=== PATIENT | female | born 2000 | race Caucasian/White ===

== ENCOUNTER 2018-06-12 19:11 | Emergency (ER) | payer BC ==
[2018-06-12 19:52] VITALS: BP 114/71
--- NOTE | 2018-06-12 20:26 | UC ---
Eye Complaint HPI - HPI Summary HPI Summary: 17 y/o female presents to the urgent care c/o RT eye upper lid pain, redness and mild swelling since this morning. Pt reports She woke up w/ a clear- yellowish discharge, but it is painful to touch and now her RT eye conjunctiva is red. Pt removed contact lenses. Pt denies visual disturbances, photophobia, MULLER, SOB, chest pain, abdominal pain, N/V/D. - History of Current Complaint Chief Complaint: UCEye Stated Complaint: RIGHT EYE Time Seen by Provider: 06/12/18 20:25 Hx Obtained From: Patient Hx Last Menstrual Period: 05/13/18 ?: No Onset/Duration: Gradual Onset, Lasting Hours - 12 hrs, Still Present Timing: Constant Severity Initially: Mild Severity Currently: Mild Pain Intensity: 4 - at touch Pain Scale Used: 0-10 Numeric Location of Injury: Conjunctiva - Rt eye redness, Eye Lid (upper) - RT eye lid pain and redness Character: Dull Aggravating Factor(s): Blinking Associated Signs And Symptoms: Positive: Negative, Drainage (Clear), Swelling - mild. Negative: Photophobia, Fever - Risk Factors Penetrating Injury Risk Factor: Negative Globe Rupture Risk Factors: Negative Acute Glaucoma Risk Factors: Negative Optic Artery Occlusion Risk Factors: Negative - Allergies/Home Medications Allergies/Adverse Reactions: Allergies Allergy/AdvReac Type Severity Reaction Status Date / Time No Known Allergies Allergy Verified 06/12/18 19:48 Home Medications: Home Medications Oral Contraceptive 1 tab PO DAILY 06/12/18 [History] PMH/Surg Hx/FS Hx/Imm Hx Previously Healthy: Yes - Pt denies PMHX - Surgical History Surgical History: None - Family History Family History: hypothyrodism - Social History Occupation: Student Lives: With Family Alcohol Use: Rare Substance Use Type: None Smoking Status (MU): Never Smoked Tobacco - Immunization History Vaccination Up to Date: Yes Review of Systems Constitutional: Negative Skin: Negative Eyes: Drainage - yellowish, Eye Redness - RT eye w/ RT eyelid painful at touch ENT: Negative Respiratory: Negative Cardiovascular: Negative Gastrointestinal: Negative Genitourinary: Negative Motor: Negative Neurovascular: Negative Musculoskeletal: Negative Neurological: Negative Psychological: Negative Is Patient Immunocompromised?: No All Other Systems Reviewed And Are Negative: Yes Physical Exam - Summary Physical Exam Summary: Vital Signs Reviewed: Yes General: Well appearing, well nourished adolescent female in no apparent pain distress Eyes: Positive: Conjunctiva Inflamed - Visual acuity: WNL,Visual floyd: full to confrontation.mild periorbital soft tissue swelling at the RT upper eyelid with erythema and discrete white small pustule in the medial side of eyelid, tender to palpation. PERRLA, EOMI intact w/out limitation or complaint of pain. eyelashes clear. mild tearing and yellowish drainage observed. No ciliary flush. No chemosis, No photophobia. Normal fundoscopic exam; no proptosis, exophthalmos, nystagmus. ENT: Positive: Normal ENT inspection, Hearing grossly normal, Pharynx normal, Nasal congestion, Nasal drainage - clear, TMs normal - B/L external ear canal clear , TM's WNL. Negative: Tonsillar swelling, Tonsillar exudate Neck: Positive: Supple, Nontender, No Lymphadenopathy Respiratory: Positive: Chest nontender, Lungs clear, Normal breath sounds, No respiratory distress Cardiovascular: Positive: RRR, No Murmur, Pulses Normal, Brisk Capillary Refill Abdomen Description: Positive: Nontender, No Organomegaly, Soft. Negative: CVA Tenderness (R), CVA Tenderness (L) Bowel Sounds: Positive: Present Musculoskeletal: Positive: Strength Intact, ROM Intact, No Edema Neurological Exam: Normal Psychological Exam: Normal Skin Exam: Normal Triage Information Reviewed: Yes Vital Signs: Initial Vital Signs Temp 98.8 F 06/12/18 19:46 Pulse 71 06/12/18 19:46 Resp 14 06/12/18 19:46 BP 114/71 06/12/18 19:46 Pulse Ox 100 06/12/18 19:46 Eye Complaint Course/Dx - Course Course Of Treatment: 17 y/o female presents to the urgent care c/o RT eye upper lid pain, redness and mild swelling since this morning. Pt reports She woke up w/ a clear-yellowish discharge, but it is painful to touch and now her RT eye conjunctiva is red. Pt removed contact lenses. Pt denies visual disturbances, photophobia, MULLER, SOB, chest pain, abdominal pain, N/V/D. Hx obtained. Pt w/ an RT upper eye lid internal hordeolum on examination. Pt Rx Erythromycin Ophthalmic Ointment. Pt advised not to wear her contact lenses and to apply warm compresses and massage the eye with gentle pressure 4-5 times for 10- 15min throughout the day. Then apply ABX and if not improvement of symptoms to f/u with dining car conductor DR Gonzalez or PCP for further evaluation and treatment. Pt understood and agreed with plan of care. - Differential Dx/Diagnosis Differential Diagnosis/HQI/PQRI: Conjunctivitis, Foreign Body, Periorbital Cellulitis, Orbital Cellulitis, Other - hordeolum Provider Diagnoses: 1- RT eye internal hordeolum Discharge - Sign-Out/Discharge Documenting (check all that apply): Patient Departure - D/c home All imaging exams completed and their final reports reviewed: No Studies - Discharge Plan Condition: Stable Disposition: HOME Prescriptions: Erythromycin OPTH OINT* [Erythromycin 0.5% OPTH OINT*] 1 applic RIGHT EYE TID # 1 ophth.oint Patient Education Materials: Fredrick (ED) Referrals: [facility] [place] [place] [facility] [Outside] - 3 Days Sylvia Gonzalez MD [Medical Doctor] - 3 Days Additional Instructions: 1-Please apply ophthalmic ointment in your RT eye as directed. Please apply warm compresses and massage the eye with gentle pressure 4-5 times for 10-15min throughout the day. Encourage hand washing to avoid spreading. 2- If you do not improve or if symptoms worsen please f/u with your PCP or dining car conductor in 2-3 days for further evaluation and treatment - Billing Disposition and Condition Condition: STABLE Disposition: Home
== END 2018-06-12 20:51 | disposition home or self-care (01) ==
LOC: UCCORT 19:11
DX: H00.021 Hordeolum internum right upper eyelid (principal)
CPT/HCPCS: 99202; G0463

== ENCOUNTER 2019-06-05 09:06 | Emergency (ER) | payer BC ==
[2019-06-05 09:22] VITALS: BP 106/72
--- NOTE | 2019-06-05 09:57 | UC ---
Throat Pain/[place] HPI - HPI Summary HPI Summary: sore throat x 4 days pain is 6 out of 10 , worse with eating, better with Tylenol + cough , runny nose, nasal congestion , pnd no fever, no chills - History of Current Complaint Chief Complaint: UCGeneralIllness Stated Complaint: ST,STUFFY,ACHES Time Seen by Provider: 06/05/19 09:51 Hx Obtained From: Patient Hx Last Menstrual Period: 05/14/19 ?: No Onset/Duration: Gradual Onset, Lasting Days - 4, Still Present Severity: Moderate Pain Intensity: 6 Cough: Nonproductive Associated Signs & Symptoms: Positive: Nasal Discharge. Negative: Wheezing, Fever, Vomiting, Rash - Allergies/Home Medications Allergies/Adverse Reactions: Allergies Allergy/AdvReac Type Severity Reaction Status Date / Time No Known Allergies Allergy Verified 06/05/19 09:22 Home Medications: Home Medications Cetirizine HCl/Pseudoephedrine [Zyrtec-D Tablet] 1 each PO BID 06/05/19 [ History Confirmed 06/05/19] Fluticasone NASAL SPRAY 50MCG* [Flonase NASAL SPRAY 50MCG*] 2 spray BOTH NARES DAILY 06/05/19 [History Confirmed 06/05/19] Montelukast Sodium TAB* [Singulair TAB*] 10 mg PO DAILY 06/05/19 [History Confirmed 06/05/19] Norethindrone/Eth Est 1.530NF [Junel 1.01/18 (NF)] 1 tab PO DAILY 06/05/19 [ History Confirmed 06/05/19] PMH/Surg Hx/FS Hx/Imm Hx Previously Healthy: Yes - Surgical History Surgical History: None - Family History Known Family History: Negative: Diabetes Family History: hypothyrodism - Social History Alcohol Use: None Substance Use Type: None Smoking Status (MU): Never Smoked Tobacco - Immunization History Vaccination Up to Date: Yes Review of Systems All Other Systems Reviewed And Are Negative: Yes Constitutional: Positive: Negative Skin: Positive: Negative Eyes: Positive: Negative ENT: Positive: Sore Throat, Nasal Discharge, Sinus Congestion Respiratory: Positive: Cough Cardiovascular: Positive: Negative Is Patient Immunocompromised?: No Physical Exam Triage Information Reviewed: Yes Appearance: Well-Appearing, No Pain Distress, Well-Nourished Vital Signs: Initial Vital Signs Temp 98.1 F 10/15/19 09:19 Pulse 85 06/05/19 09:19 Resp 18 06/05/19 09:19 BP 106/72 06/05/19 09:19 Pulse Ox 100 06/05/19 09:19 Vital Signs Reviewed: Yes Eye Exam: Normal Eyes: Positive: Conjunctiva Clear ENT: Positive: Normal ENT inspection, Hearing grossly normal, Pharynx normal, Nasal congestion, Nasal drainage, TMs normal. Negative: TM bulging, TM dull, TM red, Tonsillar swelling, Tonsillar exudate Neck exam: Normal Neck: Positive: Supple, Nontender, No Lymphadenopathy Respiratory: Positive: Chest non-tender, Lungs clear, Normal breath sounds Cardiovascular: Positive: RRR, No Murmur, Pulses Normal Skin Exam: Normal Throat Pain/Nasal Course/Dx - Differential Dx/Diagnosis Provider Diagnosis: URI (upper respiratory infection) Discharge ED - Sign-Out/Discharge Documenting (check all that apply): Patient Departure All imaging exams completed and their final reports reviewed: No Studies - Discharge Plan Condition: Stable Disposition: HOME Patient Education Materials: Upper Respiratory Infection (DC) Referrals: No Primary Care Phys,NOPCP [Primary Care Provider] - If Needed - Billing Disposition and Condition Condition: STABLE Disposition: Home
== END 2019-06-05 10:02 | disposition home or self-care (01) ==
LOC: UCCORT 09:06
DX: J06.9 Acute upper respiratory infection, unspecified (principal)
CPT/HCPCS: 99211; G0463